=== PATIENT | male | born 1945 | race Caucasian/White ===

== ENCOUNTER 2018-08-03 13:08 | Emergency (ER) | payer MEDICARE, OTHER ==
[~2018-08-03] VITALS: Ht 179.1 cm; Wt 86.2 kg
[2018-08-03] MEDS ORDERED: SODIUM CHLORIDE FLUSH 10ML SYR IVF ONE ×2 (13:30→15:00)
[2018-08-03 14:13] LABS: ALANINE AMINOTRANSFERASE 24 U/L (12-78); ALBUMIN 4.2 g/dL (3.4-5.0); ANION GAP 3 mmol/L (5-15); CALCIUM 8.7 mg/dL (8.5-10.1); CHLORIDE 108 mmol/L (98-107)
[2018-08-03 14:16] LABS: ALKALINE PHOSPHATASE 86 U/L (45-117); BILIRUBIN,TOTAL 0.7 mg/dL (0.2-1.0); CREATININE 1.73 mg/dL (0.7-1.3); TOTAL PROTEIN 7.3 g/dL (6.4-8.2)
[2018-08-03 14:42] LABS: MEAN PLATELET VOLUME 11.6 fL (7.4-10.4); PLATELET COUNT 179 x10^3/uL (130-400)
[2018-08-03 14:43] LABS: MEAN CORPUSCULAR HEMOGLOBIN 31.1 pg (27.5-34.5); MEAN CORPUSCULAR HGB CONC 32.5 g/dL (33.2-36.2); MEAN CORPUSCULAR VOLUME 95.7 fL (81-97)
[2018-08-03 14:55] LABS: PH, VENOUS 7.385 pH (7.320-7.420)
[2018-08-03] MEDS ORDERED: CALCIUM CHLORIDE 10%, 10ML SYR ONE (14:55)
[2018-08-03] MEDS ORDERED: INSULIN SINGLE DOSE, ER SQ-INSULIN ONE (14:56)
[2018-08-03] MEDS ORDERED: SODIUM POLY SULFONATE UDC 15 GM/60 ML PO ONE (15:00)
[2018-08-03] MEDS ORDERED: INSULIN REGULAR 100 UNITS/ML, 3ML VIAL IVPush ONE (15:00)
[2018-08-03] MEDS ORDERED: DEXTROSE 50%, 50ML SYRINGE IVPush ONE (15:00)
[2018-08-03] MEDS ORDERED: CALCIUM CHLORIDE 10%, 10ML SYR IVPush ONE (15:00)
[2018-08-03] MEDS ORDERED: PIOG30TA23 PO (15:50)
[2018-08-03] MEDS ORDERED: METO25TA35 PO (15:50)
[2018-08-03] MEDS ORDERED: AMLO-262 PO (15:50)
[2018-08-03] MEDS ORDERED: METF500T17 PO (15:50)
[2018-08-03] MEDS ORDERED: ROSU40TA PO (15:50)
[2018-08-03] MEDS ORDERED: LEVO5TAB29 PO (15:50)
[2018-08-03] MEDS ORDERED: HYDROCHLOROTH12.5 MG PO (15:50)
[2018-08-03] MEDS ORDERED: PIOG15TA22 PO (15:50)
[2018-08-03] MEDS ORDERED: METO50TA82 PO (15:50)
[2018-08-03 16:00] LABS: MD YES
[2018-08-03 16:05] LABS: EOS#(MANUAL) 2.07 x10^3/uL (0.0-0.4); EOS% (MANUAL) 1 % (1-7); LYMPHS% (MANUAL) 91 % (22-44); MONOS#(MANUAL) 4.13 x10^3/uL (0.3-2.7); MONOS% (MANUAL) 2 % (2-9); SEG#(MANUAL) 8.27 x10^3/uL (1.8-6.8); SEGS% (MANUAL) 4 % (42-75)
[2018-08-03 16:09] LABS: ACETONE, SERUM Negative (Negative)
[2018-08-03 16:11] LABS: OTHER CELLS # (MANUAL) 4.13 x10^3/uL (0-0); OTHER CELLS % (MANUAL) 2 % (0-0)
[2018-08-03 16:13] LABS: <PLATELET ESTIMATE> ADEQUATE; ANISOCYTOSIS 1+; LARGE PLATELETS 1+
--- NOTE | 2018-08-03 16:40 | NUR ---
HOSPITALIST AT BEDSIDE DISCUSSING ADMIT
--- NOTE | 2018-08-03 17:00 | NUR ---
PT WILL PROBABLY GO HOME, OK WITH PLAN OF CARE JUICE AND CRACKERS GIVEN PTS BG [phone]
[2018-08-03 18:06] VITALS: BP 129/85
== END 2018-08-03 18:08 | disposition home or self-care (01) ==
LOC: ED 14:27 → EDIP 16:38 → UNDOADMIN 16:38 → ED 18:08
DX: C91.10 Chronic lymphocytic leukemia of B-cell type not having achieved remission (principal)
CPT/HCPCS: 36415; 71045; 80047; 80053; 82010; 82803; 82962; 85025; 96374; 96375; 99284; J1815